=== PATIENT | female | born 1975 | race Caucasian/White ===

== ENCOUNTER → 2019-11-12 08:17 | Outpatient (CLI) | payer MEDICAID | END | disposition home or self-care (01) | LOC: D.US 08:17 | PROVIDERS: ATTEND Nurse Practitioner Family | DX: K73.2 Chronic active hepatitis, not elsewhere classified (principal) ==

== ENCOUNTER 2020-07-21 06:35 | Day surgery (SDC) | payer MEDICAID ==
[~2020-07-21] VITALS: Ht 157.5 cm; Wt 78.9 kg
[~2020-07-21 06:35] MED LIST: GABAPENTIN100 MG PO; GEODON40 MG PO; TOPAMAX200 MG PO; VYVANSE70 MG PO
[2020-07-21 07:19] LABS: HCG SERUM NEGATIVE (NEGATIVE)
[2020-07-21 07:23] LABS: HEMATOCRIT 37.6 % (36.0-48.0); HEMOGLOBIN 12.2 g/dL (12-16); MCHC 32.4 g/dL (31.0-37.0); MCV 86.4 fL (80.0-100.0); MEAN PLATELET VOLUME 9.5 fL (7.4-10.4); RBC 4.35 10x6/uL (4.00-5.40); RDW 14.5 % (11.5-14.5); WBC 6.6 10x3/uL (4.8-10.8)
[2020-07-21 07:56] VITALS: BP 106/71; Ht 157.5 cm; Wt 78.9 kg
[2020-07-21] MEDS ORDERED: CYTOMEL25 MCG PO (08:16)
--- NOTE | 2020-07-21 15:47 | NUR ---
DISCHARGE INSTRUCTIONS GIVEN TO INCLUDE LINCOLN TEACHING. PT VERBALIZED AN UNDERSTANDING.IV D/C'D WITH CANNULA INTACT, PRESSURE HELD AND DRSG PLACED.
== END 2020-07-21 13:25 | disposition home or self-care (01) ==
LOC: D.OPS 06:35
PROVIDERS: Anesthesiology; ATTEND Obstetrics & Gynecology Maternal & Fetal Medicine
DX: N92.0 Excessive and frequent menstruation with regular cycle (principal); N39.3 Stress incontinence (female) (male); N92.6 Irregular menstruation, unspecified